=== PATIENT | female | born 1995 | race Caucasian/White ===

== ENCOUNTER 2017-09-26 14:34 | Inpatient (IN) | payer OTHER ==
[~2017-09-26] VITALS: Ht 162.6 cm; Wt 68.4 kg
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
[2017-09-26] MEDS ORDERED: RISP1TAB68 PO (15:42)
[2017-09-26] MEDS ORDERED: FLUO20CA35 PO ×2 (15:42→17:25)
[2017-09-26 16:08] LABS: BASO % 0.1 %; BASO ABS # 0.01 K/uL (0-0.2); EOS % 1.1 %; EOS ABS # 0.08 K/uL (0-0.5); HEMATOCRIT 40.1 % (37-47); HEMOGLOBIN 13.4 g/dL (12.0-16.0); IG# 0.01 K/uL (0.00-0.02); LYMPH % 30.8 %; LYMPH ABS # 2.16 K/uL (1.2-3.4); MEAN CELL VOLUME 89.9 fL (80-100); MEAN CORPUSCULAR HGB CONC 33.4 g/dl (32-36); MEAN PLATELET VOLUME 10.3 fL (7.4-10.4); MONO ABS # 0.49 K/uL (0.11-0.59); NEUT % 60.9 %; NEUT ABS # 4.27 K/uL (1.4-6.5); PLATELET COUNT 216 K/uL (130-400); RED CELL DISTRIBUTION WIDTH CV 12.5 % (11.5-14.5); RED CELL DISTRIBUTION WIDTH SD 41.1 fL (36.4-46.3); WHITE BLOOD COUNT 7.02 K/uL (4.8-10.8)
[2017-09-26] MEDS ORDERED: FLUO40CA8 PO (16:16)
[2017-09-26 16:37] LABS: ALBUMIN 3.8 gm/dl (3.4-5.0); ALKALINE PHOSPHATASE 76 U/L (45-117); ALT/SGPT 21 U/L (12-78); AST/SGOT 14 U/L (15-37); BLOOD UREA NITROGEN 12 mg/dl (7-18); CALCIUM 8.6 mg/dl (8.5-10.1); CARBON DIOXIDE 26 mmol/L (21-32); CREATININE 0.88 mg/dl (0.60-1.20); GLUCOSE 102 mg/dl (70-99); POTASSIUM 3.9 mmol/L (3.5-5.1); SODIUM 140 mmol/L (136-145); TOTAL PROTEIN 7.6 gm/dl (6.4-8.2)
[2017-09-26 16:56] VITALS: O2SAT 99
[2017-09-26] MEDS ORDERED: RISPERIDONE 0.5 MG TAB PO PRN (17:00)
[2017-09-26] MEDS ORDERED: BISMUTH SUBSALICYLATE PER ML OMNICELL CHARGE PO PRN (17:00)
[2017-09-26] MEDS ORDERED: ALUMINUM/MAGNESIUM SUSP 30 ML UDC PO PRN (17:00)
[2017-09-26] MEDS ORDERED: hydrOXYzine HCL 25 MG TAB PO PRN ×2 (17:00)
[2017-09-26] MEDS ORDERED: MAGNESIUM HYDROXIDE SUSP 30 ML UDC PO PRN (17:00)
[2017-09-26] MEDS ORDERED: SODIUM CHLORIDE 0.65% NA SOLN 45 ML (OCEAN) PRN (17:00)
[2017-09-26] MEDS ORDERED: ACETAMINOPHEN 325 MG TAB PO PRN (17:00)
[2017-09-26] MEDS ORDERED: NURSING VERBAL MED ORDER ONE (17:45)
[2017-09-26 19:25] VITALS: BP 108/68; PULSE 80; TEMP 37; Ht 162.6 cm; Wt 68.4 kg
[2017-09-27 06:34] VITALS: BP_SYST 105; BP_SYST 88; BP_DIAS 51; BP_DIAS 60; PULSE 87; PULSE 96; TEMP 36.6
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
[2017-09-27] MEDS ORDERED: RISPERIDONE 1 MG TAB PO SCH (09:00)
[2017-09-27] MEDS ORDERED: FLUOXETINE HCL 10 MG CAP PO SCH ×2 (09:00)
[2017-09-28 07:02] VITALS: BP_SYST 102; BP_SYST 118; BP_DIAS 65; BP_DIAS 74; PULSE 63; PULSE 86; TEMP 36.6
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
[2017-09-29 06:40] VITALS: BP_SYST 98; BP_DIAS 57; BP_DIAS 62; PULSE 69; PULSE 84; TEMP 36.6
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
[2017-09-30 06:41] VITALS: BP_SYST 102; BP_SYST 97; BP_DIAS 63; BP_DIAS 66; PULSE 81; PULSE 86; TEMP 36.6
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
== END 2017-09-30 19:45 | disposition home or self-care (01) | DRG 881 ==
LOC: C.EDB 14:36 → C.MHU 17:00
PROVIDERS: ADMIT Psychiatry & Neurology Psychiatry; ATTEND Psychiatry & Neurology Psychiatry
DX: F32.9 Major depressive disorder, single episode, unspecified (principal); R45.851 Suicidal ideations; F60.3 Borderline personality disorder; F17.210 Nicotine dependence, cigarettes, uncomplicated; Z71.6 Tobacco abuse counseling; F12.10 Cannabis abuse, uncomplicated; F16.10 Hallucinogen abuse, uncomplicated